=== PATIENT | male | born 1955 | race Caucasian/White ===

== ENCOUNTER → 2017-07-30 | Day surgery (SDC) | payer OTHER ==
[~2017-07-30] MED LIST: ASPIRIN81 MG PO; ATORVASTATIN CA20 MG PO; BRILINTA90 MG PO; FENTANYL CITRATE/PF 100MCG/2 ML INJ ONE; METOPROLOL TART25 MG PO; MIDAZOLAM HCL 2 MG/2 ML VIAL ONE; OR PHACO EYE KIT ONE; PREOP PHACO EYE KIT ONE
== END | disposition home or self-care (01) ==
LOC: OR 10:13
PROVIDERS: ATTEND Ophthalmology
DX: H25.11 Age-related nuclear cataract, right eye (principal); I25.810 Atherosclerosis of coronary artery bypass graft(s) without angina pectoris; I25.2 Old myocardial infarction; Z79.82 Long term (current) use of aspirin; Z86.711 Personal history of pulmonary embolism; Z95.1 Presence of aortocoronary bypass graft; Z95.5 Presence of coronary angioplasty implant and graft
CPT/HCPCS: 66984; J2250; V2788

== ENCOUNTER → 2017-08-20 | Day surgery (SDC) | payer OTHER ==
[~2017-08-20] MED LIST changes: +GLYCOPYRROLATE INJ 1MG/ 5 ML SYR ONE
== END | disposition home or self-care (01) ==
LOC: OR 09:56
PROVIDERS: ATTEND Ophthalmology
DX: H25.12 Age-related nuclear cataract, left eye (principal); I25.810 Atherosclerosis of coronary artery bypass graft(s) without angina pectoris; I25.2 Old myocardial infarction; R00.1 Bradycardia, unspecified; N20.0 Calculus of kidney; Z79.82 Long term (current) use of aspirin; Z95.1 Presence of aortocoronary bypass graft; Z98.61 Coronary angioplasty status; Z86.711 Personal history of pulmonary embolism; Z86.19 Personal history of other infectious and parasitic diseases; Z87.891 Personal history of nicotine dependence
CPT/HCPCS: 66984; J2250; V2788

== ENCOUNTER → 2020-06-16 | Day surgery (SDC) | payer OTHER ==
[2020-06-13 13:33] LABS: BASOPHILS % 0.6 % (0.0-1.0); EOSINOPHILS # (AUTO) 0.1 (0.0-0.4); EOSINOPHILS % 1.9 % (0.0-6.0); HEMOGLOBIN 14.5 g/dL (14.0-18.0); LYMPHOCYTES # (AUTO) 1.5 (1.0-3.2); LYMPHOCYTES % 20.2 % (18.0-39.1); MEAN CORPUSCULAR HEMOGLOBIN 31.2 pg (28-32); MEAN CORPUSCULAR HGB CONC 34.5 g/dL (31-35); MEAN CORPUSCULAR VOLUME 90.3 fL (81-99); MONOCYTES # (AUTO) 0.6 (0.2-0.8); PLATELET COUNT 177 x10e3/uL (140-360); RED BLOOD COUNT 4.65 x10e6/uL (4.3-5.7); RED CELL DISTRIBUTION WIDTH 12.5 % (11.7-14.4)
[~2020-06-16] MED LIST changes: +BUPIVACAINE 0.25% 30ML SDV ONE; +COLCRYS0.6 MG PO; -GLYCOPYRROLATE INJ 1MG/ 5 ML SYR ONE; +IOPAMIDOL 200 MG/ML 20 ML VIAL IT ONE; +LIDOCAINE HCL 1% 30ML-PF VIAL ONE; +LIDOCAINE HCL 2% LOCAL INJ 5 ML SDV VIAL INJ ONE; -OR PHACO EYE KIT ONE; -PREOP PHACO EYE KIT ONE; +PROPOFOL IV EMULSION 10 MG/ML 20 ML VIAL ONE; +TRIAMCINOLONE ACET 40 MG/ML VIAL ONE; +ZETIA10 MG PO
[2020-06-16 07:05] VITALS: BP 107/51
== END | disposition home or self-care (01) ==
LOC: OR 05:25
PROVIDERS: ATTEND Physical Medicine & Rehabilitation Pain Medicine
DX: M46.1 Sacroiliitis, not elsewhere classified (principal); G57.01 Lesion of sciatic nerve, right lower limb; Z98.1 Arthrodesis status; M48.061 Spinal stenosis, lumbar region without neurogenic claudication; R93.7 Abnormal findings on diagnostic imaging of other parts of musculoskeletal system; M54.5 Low back pain; I25.810 Atherosclerosis of coronary artery bypass graft(s) without angina pectoris; I25.2 Old myocardial infarction; Z88.6 Allergy status to analgesic agent; Z88.0 Allergy status to penicillin; N20.0 Calculus of kidney; Z01.810 Encounter for preprocedural cardiovascular examination; Z01.812 Encounter for preprocedural laboratory examination; Z20.828 Contact with and (suspected) exposure to other viral communicable diseases; Z86.711 Personal history of pulmonary embolism; Z95.5 Presence of coronary angioplasty implant and graft; Z86.19 Personal history of other infectious and parasitic diseases; Z95.1 Presence of aortocoronary bypass graft
CPT/HCPCS: 20552; G0260; 36415; 77003; 85025; J2001; J2250; J3010; J3301; Q9967; U0002